=== PATIENT | male | born 1955 | race Caucasian/White ===

== ENCOUNTER 2019-07-31 22:50 | Inpatient (IN) ==
[2019-07-31] MEDS ORDERED: Ipratropium/Albuterol Neb 3 ML IH ONE (23:07)
[2019-07-31] MEDS ORDERED: predniSONE 20 MG TABLET PO ONE (23:07)
[2019-08-01 01:06] LABS: Basophils % 0.2 %; Eosinophils % 0.1 %; Hematocrit 43.9 % (37.5-50.1); Hemoglobin 12.9 g/dL (12.9-16.9); Immature Granulocytes % 0.6 % (0-4); Lymphocytes # 1.3 K/mcL (0.6-4.6); Lymphocytes % 15.6 %; Mean Corpuscular HGB Conc 29.4 g/dL (31.6-35.5); Mean Corpuscular Hemoglobin 28.2 pg (28.0-33.3); Mean Corpuscular Volume 95.9 fL (83.0-100.0); Mean Platelet Volume 9.7 fL (9.4-12.4); Monocytes % 12.1 %; Neutrophils # 5.8 K/mcL (1.6-8.9); Platelet Count 254 K/mcL (140-400); Red Blood Count 4.58 M/mcL (4.19-5.50); Red Cell Distribution Width 12.8 % (11.5-14.5); Segmented Neutrophils % 71.4 %; White Blood Count 8.1 K/mcL (4.3-11.1)
[2019-08-01 01:57] LABS: BUN/Creatinine Ratio 33 (6-26); Blood Urea Nitrogen 17 mg/dL (8-23); Calcium 8.8 mg/dL (8.6-10.3); Carbon Dioxide > 45 mEq/L (23-29); Chloride 92 mEq/L (98-107); Glucose 112 mg/dL (70-105); Osmolality,Calculated 296 (280-300); Potassium 4.2 mEq/L (3.5-5.1); Sodium 142 mEq/L (136-145); eGFR For African Americans > 60 (> 60); eGFR For Non-African Americans > 60 (> 60)
[2019-08-01] MEDS ORDERED: Isovue-370 500 ML BOTTLE IVP ONE (02:32)
[2019-08-01] MEDS ORDERED: Albuterol Neb 1.25 MG/3 ML VIAL IH ONE (02:43)
[2019-08-01 02:45] LABS: ABG Base Excess 20 mEq/L (-2 to 3); ABG HCO3 51 mEq/L (21-27); ABG Oxygen Saturation 95 % (95-98); ABG PCO2 89 mmHg (35-45); ABG PH 7.37 pH Units (7.32-7.45); ABG PO2 86 mmHg (85-104); ABG TCO2 > 50 mEq/L (20-26); Blood Gas Modality NIV
[2019-08-01] MEDS ORDERED: Albuterol 2.5 MG/3 ML NEBULIZER IH ONE (03:00)
[2019-08-01] MEDS ORDERED: Naloxone 0.4 MG/ML INJ IVP PRN (05:02)
[2019-08-01] MEDS: Nicotine 21 MG PATCH.TD24 TD SCH (06:41)
[2019-08-01] MEDS: Cefdinir 300 MG CAPSULE PO SCH ×2 (09:54→21:52)
[2019-08-01] MEDS: Acetaminophen 325 MG TABLET PO PRN ×2 (09:54→19:35)
[2019-08-01] MEDS: predniSONE 20 MG TABLET PO SCH (09:54)
[2019-08-01] MEDS ORDERED: Ipratropium/Albuterol Neb 3 ML IH SCH ×3 (11:00→16:00)
[2019-08-01] MEDS ORDERED: NON-FORMULARY MEDICATION 1 EACH EACH (Gabapentin [Neurontin] 600 MG) PO SCH (12:00)
[2019-08-01] MEDS ORDERED: clonazePAM 0.5 MG TABLET PO ONE (12:08)
[2019-08-01] MEDS: FLUoxetine 20 MG CAPSULE PO SCH (12:19)
[2019-08-01] MEDS: Albuterol 2.5 MG/3 ML NEBULIZER IH PRN ×2 (12:54→16:26)
[2019-08-01 13:08] LABS: ABG Base Excess 17 mEq/L (-2 to 3); ABG HCO3 47 mEq/L (21-27); ABG Oxygen Saturation 97 % (95-98); ABG PCO2 82 mmHg (35-45); ABG PH 7.36 pH Units (7.32-7.45); ABG PO2 100 mmHg (85-104); ABG TCO2 49 mEq/L (20-26)
[2019-08-01] MEDS: Gabapentin 300 MG CAPSULE PO SCH ×2 (14:48→21:53)
[2019-08-01] MEDS: Azithromycin 250 MG TABLET PO SCH (14:48)
[2019-08-01] MEDS: *HR* Heparin 5,000 UNIT/ML VIAL SQ SCH (18:07)
[2019-08-01] MEDS: Budesonide/Formoterol 80/4.5 1 PUFF INH IH SCH (20:07)
[2019-08-01] MEDS: Levalbuterol Neb 1.25 MG/3 ML IH SCH ×2 (20:07→23:37)
[2019-08-01] MEDS: SUMAtriptan succinate 50 MG TABLET PO PRN (21:53)
[2019-08-02] MEDS ORDERED: Melatonin 3 MG TABLET PO SCH (00:15)
[2019-08-02 02:04] LABS: Basophils % 0.3 %; Eosinophils % 0.3 %; Hematocrit 41.3 % (37.5-50.1); Hemoglobin 12.7 g/dL (12.9-16.9); Immature Granulocytes % 0.7 % (0-4); Lymphocytes # 2.5 K/mcL (0.6-4.6); Lymphocytes % 35.8 %; Mean Corpuscular HGB Conc 30.8 g/dL (31.6-35.5); Mean Corpuscular Hemoglobin 29.1 pg (28.0-33.3); Mean Corpuscular Volume 94.7 fL (83.0-100.0); Monocytes # 0.8 K/mcL (0.0-1.3); Monocytes % 11.1 %; Neutrophils # 3.6 K/mcL (1.6-8.9); Platelet Count 266 K/mcL (140-400); Red Blood Count 4.36 M/mcL (4.19-5.50); Red Cell Distribution Width 12.6 % (11.5-14.5); Segmented Neutrophils % 51.8 %
[2019-08-02 02:29] LABS: BUN/Creatinine Ratio 33 (6-26); Blood Urea Nitrogen 18 mg/dL (8-23); Calcium 9.2 mg/dL (8.6-10.3); Carbon Dioxide 44 mEq/L (23-29); Chloride 94 mEq/L (98-107); Glucose 97 mg/dL (70-105); Osmolality,Calculated 292 (280-300); Platelet Estimate Normal (Normal); Potassium 3.9 mEq/L (3.5-5.1); Reactive Lymphocytes Present (Not Present); Sodium 140 mEq/L (136-145); Stomatocytes 2+ (Not Present); eGFR For African Americans > 60 (> 60); eGFR For Non-African Americans > 60 (> 60)
[2019-08-02] MEDS: Levalbuterol Neb 1.25 MG/3 ML IH SCH ×5 (03:51→19:50)
[2019-08-02] MEDS: Acetaminophen 325 MG TABLET PO PRN ×3 (04:02→20:42)
[2019-08-02 04:51] LABS: ABG Base Excess 19 mEq/L (-2 to 3); ABG HCO3 49 mEq/L (21-27); ABG Oxygen Saturation 87 % (95-98); ABG PCO2 81 mmHg (35-45); ABG PO2 58 mmHg (85-104); ABG TCO2 > 50 mEq/L (20-26)
[2019-08-02] MEDS: Budesonide/Formoterol 80/4.5 1 PUFF INH IH SCH ×2 (07:30→19:50)
[2019-08-02] MEDS: FLUoxetine 20 MG CAPSULE PO SCH (09:56)
[2019-08-02] MEDS: Gabapentin 300 MG CAPSULE PO SCH ×3 (09:57→20:41)
[2019-08-02] MEDS: predniSONE 20 MG TABLET PO SCH (09:58)
[2019-08-02] MEDS: *HR* Heparin 5,000 UNIT/ML VIAL SQ SCH ×2 (09:59→18:09)
[2019-08-02] MEDS: Azithromycin 250 MG TABLET PO SCH (10:00)
[2019-08-02] MEDS: Nicotine 21 MG PATCH.TD24 TD SCH (10:00)
[2019-08-02] MEDS: Cefdinir 300 MG CAPSULE PO SCH ×2 (10:01→20:41)
[2019-08-02] MEDS: Tiotropium 18 MCG inhalation IH SCH (10:54)
[2019-08-02] MEDS: SUMAtriptan succinate 50 MG TABLET PO PRN (18:11)
[2019-08-03] MEDS: Levalbuterol Neb 1.25 MG/3 ML IH SCH ×5 (00:24→15:57)
[2019-08-03] MEDS: *HR* Heparin 5,000 UNIT/ML VIAL SQ SCH (05:23)
[2019-08-03] MEDS: Acetaminophen 325 MG TABLET PO PRN (05:23)
[2019-08-03 06:46] LABS: Basophils % 0.1 %; Eosinophils # 0.1 K/mcL (0.0-0.6); Eosinophils % 0.7 %; Hematocrit 41.2 % (37.5-50.1); Hemoglobin 12.6 g/dL (12.9-16.9); Immature Granulocytes % 0.9 % (0-4); Lymphocytes # 3.2 K/mcL (0.6-4.6); Lymphocytes % 34.4 %; Mean Corpuscular HGB Conc 30.6 g/dL (31.6-35.5); Mean Corpuscular Hemoglobin 28.3 pg (28.0-33.3); Mean Corpuscular Volume 92.4 fL (83.0-100.0); Monocytes # 0.9 K/mcL (0.0-1.3); Monocytes % 9.8 %; Platelet Count 272 K/mcL (140-400); Red Blood Count 4.46 M/mcL (4.19-5.50); Red Cell Distribution Width 12.8 % (11.5-14.5); Segmented Neutrophils % 54.1 %; White Blood Count 9.2 K/mcL (4.3-11.1)
[2019-08-03 07:08] LABS: BUN/Creatinine Ratio 39 (6-26); Blood Urea Nitrogen 24 mg/dL (8-23); Calcium 8.8 mg/dL (8.6-10.3); Carbon Dioxide 42 mEq/L (23-29); Chloride 96 mEq/L (98-107); Glucose 98 mg/dL (70-105); Osmolality,Calculated 296 (280-300); Potassium 3.8 mEq/L (3.5-5.1); Sodium 141 mEq/L (136-145); eGFR For African Americans > 60 (> 60); eGFR For Non-African Americans > 60 (> 60)
[2019-08-03] MEDS: Budesonide/Formoterol 80/4.5 1 PUFF INH IH SCH (08:13)
[2019-08-03] MEDS: Tiotropium 18 MCG inhalation IH SCH (08:16)
[2019-08-03] MEDS: FLUoxetine 20 MG CAPSULE PO SCH (08:17)
[2019-08-03] MEDS: Gabapentin 300 MG CAPSULE PO SCH (08:17)
[2019-08-03] MEDS: predniSONE 20 MG TABLET PO SCH (08:17)
[2019-08-03] MEDS: Nicotine 21 MG PATCH.TD24 TD SCH (08:17)
[2019-08-03] MEDS: Azithromycin 250 MG TABLET PO SCH (08:17)
[2019-08-03] MEDS: Cefdinir 300 MG CAPSULE PO SCH (08:17)
[2019-08-03] MEDS: SUMAtriptan succinate 50 MG TABLET PO PRN (09:21)
[2019-08-03] MEDS ORDERED: *HR* LORazepam 0.5 MG TABLET PO ONE (11:29)
[2019-08-03 15:38] VITALS: BP 130/76
== END 2019-08-03 16:05 | disposition home or self-care (01) | DRG 140 ==
LOC: 2NENU 22:50 → EMEROOARM 22:50 → SUATTDRO 08-01 04:51 → 2NENU 08-01 05:22
PROVIDERS: ADMIT Family Medicine; ATTEND Internal Medicine